=== PATIENT | female | born 1980 | race Caucasian/White ===

== ENCOUNTER → 2023-03-30 | Outpatient (CLI) | payer OTHER ==
[2023-03-30 18:17] LABS: THYROXINE (T4) 11.8 UG/DL (4.5-10.9)
[2023-03-30 18:18] LABS: FOLATE 12.8 NG/ML (>5.4); T UPTAKE 33.5 % (22.5-37.0); THYROID STIMULATING HORMONE 1.327 uIU/ML (0.55-4.78)
== END ==
LOC: M PLALAB 14:55
PROVIDERS: ATTEND Psychiatry & Neurology Neurology
DX: R25.1 Tremor, unspecified (principal); R41.3 Other amnesia; E53.8 Deficiency of other specified B group vitamins; E03.9 Hypothyroidism, unspecified

== ENCOUNTER → 2023-03-30 | Outpatient (CLI) | payer OTHER ==
[2023-03-30 18:18] LABS: CALCIUM LEVEL 9.1 MG/DL (8.5-10.1); PHOSPHORUS LEVEL 3.2 MG/DL (2.5-4.9); PTH INTACT 72.4 PG/ML (18.5-88.0)
[2023-03-30 18:19] LABS: TOTAL 25(OH) VITAMIN D 9.9 NG/ML (20.0-100.0)
== END ==
LOC: M PLALAB 14:58
PROVIDERS: ATTEND Nurse Practitioner Family
DX: E21.3 Hyperparathyroidism, unspecified (principal)

== ENCOUNTER → 2023-08-25 | Outpatient (REF) | payer OTHER ==
[2023-08-25 18:26] LABS: BLOOD UREA NITROGEN 10 MG/DL (9-23); CARBON DIOXIDE LEVEL 30 MMOL/L (20-31); CHLORIDE LEVEL 102 MMOL/L (98-107); CREATININE FOR GFR 0.89 MG/DL (0.55-1.30); GLOMERULAR FILTRATION RATE > 60.0 (>58); GLUCOSE, FASTING 84 MG/DL (60-100); POTASSIUM SERUM 4.7 MMOL/L (3.5-5.1); SODIUM LEVEL 139 MMOL/L (136-145)
[2023-08-25 18:27] LABS: CALCIUM,RANDOM URINE < 5.0 MG/DL
[2023-08-25 18:29] LABS: CREATININE,RANDOM URINE 23.2 MG/DL
== END ==
LOC: M LABDRAWP 17:49
PROVIDERS: ATTEND Nurse Practitioner Family
DX: E21.3 Hyperparathyroidism, unspecified (principal)

== ENCOUNTER → 2024-01-08 | Outpatient (CLI) | payer OTHER ==
[2024-01-08 10:31] LABS: BASO % 0.5 % (0.0-1.0); EOS # 0.1 10^3/uL (0.0-0.5); EOS % 0.6 % (0.0-3.0); HEMATOCRIT 40.4 % (36.0-47.0); HEMOGLOBIN 13.7 g/dl (12.0-15.5); LYMPH # 2.1 10^3/uL (1.5-5.0); LYMPH % 23.8 % (24.0-44.0); MEAN CORPUSCULAR HEMOGLOBIN 28.3 pg (27.0-33.0); MEAN CORPUSCULAR HGB CONC 33.9 g/dl (32.0-36.5); MEAN CORPUSCULAR VOLUME 83.5 fl (80.0-96.0); MONO # 0.4 10^3/uL (0.0-0.8); NEUTROPHILS % 69.8 % (36.0-66.0); PLATELET COUNT, AUTOMATED 370 10^3/uL (150-450); RED BLOOD COUNT 4.84 10^6/uL (4.00-5.40); WHITE BLOOD COUNT 8.6 10^3/uL (4.0-10.0)
[2024-01-08 11:06] LABS: ALBUMIN 3.8 G/DL (3.2-5.2); ALKALINE PHOSPHATASE 106 U/L (46-116); ALT/SGPT 24 U/L (7.0-40); AST/SGOT 9 U/L (<34); BILIRUBIN,TOTAL 0.3 MG/DL (0.3-1.2); BLOOD UREA NITROGEN 11 MG/DL (9-23); CALCIUM LEVEL 9.6 MG/DL (8.5-10.1); CARBON DIOXIDE LEVEL 27 MMOL/L (20-31); CHLORIDE LEVEL 104 MMOL/L (98-107); CREATININE FOR GFR 0.84 MG/DL (0.55-1.30); GLOMERULAR FILTRATION RATE > 60.0 (>58); GLUCOSE, FASTING 130 MG/DL (60-100); POTASSIUM SERUM 4.1 MMOL/L (3.5-5.1); SODIUM LEVEL 136 MMOL/L (136-145); TOTAL PROTEIN 6.7 G/DL (5.7-8.2)
[2024-01-08 11:09] LABS: FOLATE 11.3 NG/ML (>5.4)
[2024-01-08 11:10] LABS: VITAMIN B12 LEVEL 569 PG/ML (211-911)
[2024-01-13 17:43] LABS: VITAMIN E(ALPHA TOCOPHEROL) 11.3 mg/L (5.7-19.9); VITAMIN E(GAMMA TOCOPHEROL) 1.7 mg/L (<=4.3)
[2024-01-14 00:26] LABS: PHENOBARBITAL (PRIMIDONE) < 5.0 mg/L (15.0-40.0); PRIMIDONE, SERUM < 2.5 mg/L (5.0-12.0)
[2024-01-14 14:44] LABS: VITAMIN B6,PYRIDOXAL PHOSPHATE 36.6 ng/mL (2.1-21.7)
[2024-01-16 15:08] LABS: VITAMIN B1 LEVEL WHOLE BLOOD 113 nmol/L (78-185)
== END ==
LOC: M PLALAB 08:58
PROVIDERS: ATTEND Psychiatry & Neurology Neurology
DX: R25.1 Tremor, unspecified (principal); D51.0 Vitamin B12 deficiency anemia due to intrinsic factor deficiency; E51.9 Thiamine deficiency, unspecified; E53.1 Pyridoxine deficiency; E56.0 Deficiency of vitamin E

== ENCOUNTER → 2024-11-10 | Outpatient (CLI) | payer OTHER ==
[2024-11-10 16:10] LABS: BASO # 0.0 10^3/uL (0.0-0.2); BASO % 0.5 % (0.0-1.0); EOS # 0.1 10^3/uL (0.0-0.5); EOS % 1.0 % (0.0-3.0); LYMPH # 2.2 10^3/uL (1.5-5.0); LYMPH % 24.8 % (24.0-44.0); MONO # 0.6 10^3/uL (0.0-0.8); MONO % 6.6 % (2.0-8.0); NEUTROPHILS # 5.8 10^3/uL (1.5-8.5); NEUTROPHILS % 66.8 % (36.0-66.0); PLATELET COUNT, AUTOMATED 424 10^3/uL (150-450)
[2024-11-10 16:39] LABS: ALT/SGPT 25.0 U/L (7.0-40); AST/SGOT 15.0 U/L (<34); CALCIUM LEVEL 9.3 MG/DL (8.5-10.1); CARBON DIOXIDE LEVEL 28.0 MMOL/L (20-31); CHLORIDE LEVEL 101.0 MMOL/L (98-107); CREATININE FOR GFR 0.91 MG/DL (0.55-1.30); GLOMERULAR FILTRATION RATE 80.8 (>58); POTASSIUM SERUM 4.8 MMOL/L (3.5-5.1); SODIUM LEVEL 141.0 MMOL/L (136-145)
[2024-11-10 16:43] LABS: VITAMIN B12 LEVEL 631.0 PG/ML (211-911)
[2024-11-16 00:42] LABS: PHENOBARBITAL (PRIMIDONE) < 5.0 mg/L (15.0-40.0); PRIMIDONE, SERUM 2.6 mg/L (5.0-12.0)
[2024-11-16 21:13] LABS: VITAMIN B6,PYRIDOXAL PHOSPHATE 43.5 ng/mL (2.1-21.7)
[2024-11-17 04:08] LABS: VITAMIN E(ALPHA TOCOPHEROL) 11.7 mg/L (5.7-19.9); VITAMIN E(GAMMA TOCOPHEROL) 1.2 mg/L (<=4.3)
[2024-11-18 20:21] LABS: VITAMIN B1 LEVEL WHOLE BLOOD 116 nmol/L (78-185)
== END ==
LOC: M PLALAB 11:43
PROVIDERS: ATTEND Psychiatry & Neurology Neurology
DX: E53.8 Deficiency of other specified B group vitamins (principal); E53.1 Pyridoxine deficiency; R25.1 Tremor, unspecified